=== PATIENT | male | born 1990 | race Caucasian/White ===

== ENCOUNTER 2020-01-27 09:34 | Outpatient (REF) | payer OTHER, SELFPAY ==
[2020-01-27 10:03] LABS: COVID-19 Test Negative (Negative)
== END 2020-01-27 09:35 | disposition home or self-care (01) ==
LOC: HO.EMPCOV 09:34
PROVIDERS: Visit Provider Internal Medicine
DX: Z20.828 Contact with and (suspected) exposure to other viral communicable diseases (principal)
CPT/HCPCS: 87635; C9803

== ENCOUNTER 2021-02-01 06:53 | Outpatient (REF) | payer OTHER, SELFPAY ==
--- NOTE | ~2021-02-01 | FL_ITS ---
EXAMINATION: FL BARIUM SWALLOW CLINICAL INFORMATION: Sensation of food getting stuck in throat. COMPARISON: None. TECHNIQUE: Barium swallow examination is performed using fluoroscopic evaluation in addition to multiple fluoroscopic spot views. The patient is imaged both upright and prone and using both thick and thin sulfate along with effervescent granules. Barium tablet was also administered. Fluoroscopy time: 0.7 minutes DAP: 5.3 Gycm2 Images: 34 FINDINGS: The swallowing mechanism is normal. No aspiration or penetration is seen. There is significant gastroesophageal reflux. The esophagus is otherwise normal appearing. No hernia, stricture or evidence of esophagitis is seen. The barium tablet passed freely into the stomach. FL/FL barium swallow IMPRESSION: Gastroesophageal reflux.
[2021-02-01 07:08] LABS: MANUAL DIFF FLAG NO
[2021-02-01 07:25] LABS: Basophils Absolute Auto 0.1 X10*3/uL (0.0-0.2); Basophils Percent Auto 0.9 % (0-2); Eosinophils Absolute Auto 0.2 X10*3/uL (0.0-0.4); Eosinophils Percent Auto 3.5 % (0-4); Hematocrit 43.7 % (42.0-52.0); Hemoglobin 14.9 g/dl (14.0-18.0); Imm Gran Abs Auto 0.02 X10*3/uL (0.00-0.03); Imm Gran Pct Auto 0.4 % (0.0-0.4); Lymphocytes Absolute Auto 1.7 X10*3/uL (1.2-4.9); Mean Corpuscular HGB Conc 34.1 g/dl (31.0-36.0); Mean Corpuscular Hemoglobin 31.4 pg (27.0-33.0); Mean Corpuscular Volume 92.2 fL (80.0-98.0); Mean Platelet Volume 9.3 fL (9.4-12.4); Monocytes Absolute Auto 0.6 X10*3/uL (0.1-1.2); Monocytes Percent Auto 10.3 % (2-11); Neutrophils Absolute Auto 2.9 x10*3/uL (2.0-8.3); Neutrophils Percent Auto 53.9 % (45-73); Platelet Count 296 X10*3/uL (160-400); Red Blood Count 4.74 X10*6/uL (4.60-5.80); White Blood Count 5.5 X10*3/uL (4.8-10.8)
[2021-02-01 08:08] LABS: Anion Gap 13 (12-20); Blood Urea Nitrogen 14 mg/dL (9-16); Calcium 9.5 mg/dL (8.4-10.2); Carbon Dioxide 26 mmol/L (22-29); Chloride 106 mmol/L (96-108); Cholesterol 190 mg/dL; Estimated Glomerular Filt Rate > 60; Glucose Fasting 106 mg/dL (60-99); HDL Cholesterol 47 mg/dL; LDL Cholesterol Calculated 117 mg/dl; Potassium 4.2 mmol/L (3.3-5.1); Sodium 141 mmol/L (135-145); Triglycerides 131 mg/dL
[2021-02-01 08:21] LABS: TSH reflex Free T4 2.42 uIU/mL (0.32-4.0)
[2021-02-01 08:48] LABS: HIV AB/AG Nonreactive (Nonreactive); HIV Num 1 0.05 S/CO (0.00-0.99)
[2021-02-01 08:50] LABS: ~HepC Num1 0.14 S/CO (0.00-0.79); ~Hepatitis C Antibody Nonreactive (Nonreactive)
[2021-02-02 03:52] LABS: Syphilis Screen Nonreactive (Nonreactive)
== END 2021-02-01 06:54 | disposition home or self-care (01) ==
LOC: HO.XRAY 06:53
PROVIDERS: PCP Nurse Practitioner Family; Visit Provider Nurse Practitioner Family
DX: Z00.00 Encounter for general adult medical examination without abnormal findings (principal); Z11.4 Encounter for screening for human immunodeficiency virus [HIV]; R19.8 Other specified symptoms and signs involving the digestive system and abdomen; I10 Essential (primary) hypertension; E78.00 Pure hypercholesterolemia, unspecified
CPT/HCPCS: 36415; 74220; 80048; 80061; 82947; 84443; 85025; 86780; 86803; 87389

== ENCOUNTER 2021-11-09 09:46 | Emergency (ER) | payer OTHER, SELFPAY ==
--- NOTE | ~2021-11-09 | CT_ITS ---
EXAMINATION: CT ABDOMEN AND PELVIS WITH CONTRAST CLINICAL INFORMATION: Right lower quadrant pain. COMPARISON: None. TECHNIQUE: Multidetector volumetric images were obtained from the superior aspect of the liver through the pubic symphysis following administration 85 mL of Omnipaque 350 intravenous contrast. Sagittal and coronal reformatted images were obtained on the technologist's workstation. Oral contrast: No This CT examination was performed using dose optimization techniques as appropriate, variously including the following: *Automated exposure control *Adjustment of mA and/or kV according to patient size (this includes techniques or standardized protocols for targeted exams where dose is matched to indication/reason for exam; i.e. extremities or head) *Use of iterative reconstruction technique DLP: 617 mGy-cm FINDINGS: LUNG BASES: Mild subsegmental atelectasis. No focal consolidation or pleural effusion. LIVER, GALLBLADDER, AND BILIARY TREE: The liver measures 21 cm craniocaudally but is otherwise normal in attenuation and shape. There are a couple hypodensities adjacent to the gallbladder in the right hepatic lobe, for instance images 29 and 35 (series 3), which are too small to characterize by CT, unsure if these are hepatic in origin or associated with volume averaging from the gallbladder wall. There are a few other very small hypodensities in the liver, for instance on sagittal image 85 and 102, series 8. No cholelithiasis. No evidence of gallbladder wall thickening or pericholecystic inflammatory changes to suspect acute cholecystitis. No biliary ductal dilatation. PANCREAS: Unremarkable. SPLEEN: Unremarkable. ADRENAL GLANDS: Unremarkable. KIDNEYS AND URETERS: There is a too small to characterize cortical hypodensity in the upper left kidney, which statistically favors to represent a simple cyst and for which no imaging follow-up is recommended. Symmetric nephrograms. No hydronephrosis. No significant perinephric fat stranding. BLADDER: Unremarkable. GASTROINTESTINAL TRACT: The appendix is not definitely identified, however there are no regional inflammatory changes to suspect acute appendicitis. Query wall thickening of the upper to mid rectum (3:78), suboptimally assessed due to underdistention. ABDOMINAL WALL: No significant hernia is appreciated. LYMPH NODES: There are a few prominent but subcentimeter in short axis right lower mesenteric lymph nodes, for instance measuring 0.7 cm in short axis on image 58, series 3. No lymphadenopathy by size criteria. VASCULAR: Normal caliber of the abdominal aorta. PELVIC VISCERA: Normal appearance of the prostate gland and seminal vesicles. OSSEOUS STRUCTURES: No acute or aggressive appearing osseous abnormalities. CT/CT abdomen pelvis w IV con IMPRESSION: Questionable mild wall thickening of the mid to upper rectum, equivocal finding in the setting of luminal underdistention. Correlate clinically for proctocolitis. There are a few too small to characterize liver hypodensities, many of which are likely related with volume averaging and tiny fat locules, and others which are likely containers sales representative of simple cysts and overall overwhelmingly likely to be benign in etiology. However, these are too small to characterize by CT and if clinically indicated, for definite characterization, correlation with an elective MR of the abdomen with and without intravenous contrast could be obtained. Mild hepatomegaly. A few prominent mesenteric lymph nodes, more so in the right lower quadrant are fairly indeterminate. This could potentially be reactive in the setting of gastroenteritis or associated with mesenteric adenitis.
[2021-11-09 09:53] VITALS: BP 148/91; PULSE 77; RESP 16; TEMP 36.4; O2SAT 100; BMI 26.3
--- NOTE | 2021-11-09 10:00 | ED.ABDPAIN ---
HPI - Abdominal Pain General Chief Complaint: Abdominal Pain Stated Complaint: appendix issue? Time Seen by Provider: 11/09/21 09:59 Source: patient Mode of arrival: ambulatory Limitations: no limitations History of Present Illness MD elicited complaint: abdominal pain Pertinent past history: none Onset (ago): day(s) (2) Pain Consistency: constant Location: RLQ and pelvis Severity: mild Quality: aching Radiation: none Migration to: no migration Exacerbating factors: movement Relieving factors: nothing Associated symptoms: other (felt dizzy at one point yesterday) Related Data Previous Rx's Medication Instructions Recorded diclofenac sodium 1 % topical gel 2 g topical QID #100 grams 01/24/21 (Voltaren Arthritis Pain) Allergies Allergy/AdvReac Type Severity Reaction Status Date / Time No Known Allergies Allergy Verified 01/24/21 16:21 [No Known Allergies*] Review of Systems Review of Systems Constitutional : No Weight loss, No Fever, No Chills ENT/Mouth : No sore throat, No Rhinorrhea Eyes: No Swelling, No Redness Cardiovascular : No Chest Pain, No SOB, NoEdema Respiratory : No Cough, No Sputum, No Wheezing Gastrointestinal : no Nausea, no Vomiting, no Diarrhea, positive abdominal Pain, No Hematochezia, No Melena Genitourinary : No Dysuria, No Urinary Frequency, No Hematuria, No Urgency Musculoskeletal : No joint pain, No Myalgias, No Joint Swelling Skin : No Skin Lesions, No rash Neuro : No Weakness, No Numbness, No Dizziness, No Headache Psych : No Anxiety/Panic, No Depression Heme/Lymph: No Bruising, No Lymphadenopathy Endocrine : No Polyuria, No Polydipsia All other systems reviewed and are negative. COUNTS INCLUDE 234 BEDS AT THE [facility] Past Medical History Attestation statement: The following information was validated with the patient. Medical History Right shoulder pain Social History Social History Housing: House Patient Tobacco Use Status: Former Tobacco user Tobacco use type: Cigarette e-Cigarette/Vaping Use: Never Used Second Hand Smoke Exposure: No Use of substances other than those prescribed or required for medical reasons: Yes Substance Use Type: Marijuana Substance Use Frequency: Occasionally Advance Directives: No service: No Current occupational status: employed Physical Exam ED Vital Signs: Vital Signs - 24 hr 11/09/21 09:53 11/09/21 10:35 Temperature 97.6 F Pulse Rate 77 66 Respiratory Rate 16 18 Blood Pressure 148/91 H 134/86 Pulse Oximetry 100 98 Oxygen Delivery Method Room Air Room Air BMI result Body Mass Index 26.3 Appearance: Alert. Oriented X3. No acute distress. Eyes: Pupils equal, round and reactive to light. ENT: Pharynx normal. Neck: Normal inspection. Neck supple. CVS: Normal heart rate and rhythm. Pulses normal. Respiratory: No respiratory distress. Breath sounds normal. Abdomen: Soft and mild ttp in RLQ no rebound or guarding, also ttp along R inguinal area no mass felt Skin: Skin warm and dry. Normal skin color. Normal skin turgor. Extremities: No lower extremity edema. No calf ttp Neuro: Oriented X 3. No motor deficit. No sensory deficit. Course Course Course Narrative: no fevers, no WBC count - no shift, possible mesenteric adenitis proctocolitis without rectal pain or diarrhea seems unlikely I discussed this with the patient and given lack of symptoms we will hold off antibiotics he will call tomorrow if he has any issues or develops diarrhea or pain MDM - Abdominal Pain MDM Narrative Medical decision making narrative: 31 yo male with no sig PMH here with 2 days of RLQ pain but also possible pain along inguinal area - at this time will obtain basic labs, CT scan to evaluate for appendicitis. Dispo per results and findings. Lab Data Result diagrams: 11/09/21 10:01 11/09/21 10:01 Labs: Lab Results 11/09/21 11/09/21 11/09/21 Range/Units 10:01 10:01 10:42 WBC 7.6 (4.8-10.8) X10*3/uL RBC 4.91 (4.60-5.80) X10*6/uL Hgb 15.7 (14.0-18.0) g/dl Hct 44.6 (42.0-52.0) % MCV 90.8 (80.0-98.0) fL MCH 32.0 (27.0-33.0) pg MCHC 35.2 (31.0-36.0) g/dl RDW 12.0 (11.0-16.0) % Plt Count 271 (160-400) X10*3/uL MPV 9.2 L (9.4-12.4) fL Immature Gran % (Auto) 0.4 (0.0-0.4) % Neut % (Auto) 67.0 (45-73) % Lymph % (Auto) 24.0 (20-40) % Pinal % (Auto) 7.0 (2-11) % Eos % (Auto) 0.9 (0-4) % Baso % (Auto) 0.7 (0-2) % Lymph # (Auto) 1.8 (1.2-4.9) X10*3/uL Pinal # (Auto) 0.5 (0.1-1.2) X10*3/uL Eos # (Auto) 0.1 (0.0-0.4) X10*3/uL Baso # (Auto) 0.1 (0.0-0.2) X10*3/uL Abs Immat Gran (auto) 0.03 (0.00-0.03) X10*3/uL Absolute Neuts (auto) 5.1 (2.0-8.3) x10*3/uL Absolute Nucleated RBC 0.000 (0.0-0.012) X10*3/uL Nucleated RBC % (auto) 0.0 (0.0-0.2) /100WBC Sodium 141 (135-145) mmol/L Potassium 4.5 (3.3-5.1) mmol/L Chloride 103 (96-108) mmol/L Carbon Dioxide 27 (22-29) mmol/L Anion Gap 16 (12-20) BUN 17 H (9-16) mg/dL Creatinine 0.89 (0.5-1.4) mg/dL Estim Creat Clear Calc 141.1 Estimated GFR > 60 Random Glucose 103 (60-115) mg/dL Lactic Acid 0.8 (0.5-2.0) mmol/L Calcium 10.0 (8.4-10.2) mg/dL Total Bilirubin 1.0 (0.0-1.0) mg/dL Direct Bilirubin 0.3 (0.0-0.5) mg/dL AST 23 (5-37) U/L ALT 43 H (0-40) U/L Alkaline Phosphatase 88 (39-117) U/L Total Protein 8.0 (6.5-8.0) g/dL Albumin 5.0 (3.5-5.0) g/dL Lipase 22 (8-78) U/L Discharge Plan Discharge Clinical Impression: Acute mesenteric adenitis Patient Disposition: Home, Self-Care Instructions: Mesenteric Adenitis (ED) Additional Instructions: return to ED for any worsening symptoms or concerns motrin and tylenol for pain - adenitis is usually self limiting you will need outpatient MRI of your liver to characterize cysts Questionable mild wall thickening of the mid to upper rectum, equivocal finding in the setting of luminal underdistention. Correlate clinically for proctocolitis. ? There are a few too small to characterize liver hypodensities, many of which are likely related with volume averaging and tiny fat locules, and others which are likely patient service representative of simple cysts and overall overwhelmingly likely to be benign in etiology. However, these are too small to characterize by CT and if clinically indicated, for definite characterization, correlation with an elective MR of the abdomen with and without intravenous contrast could be obtained. ? Mild hepatomegaly. ? A few prominent mesenteric lymph nodes, more so in the right lower quadrant are fairly indeterminate. This could potentially be reactive in the setting of gastroenteritis or associated with mesenteric adenitis. Prescriptions: No Action diclofenac sodium [Voltaren Arthritis Pain] 1 % gel 2 g topical QID Qty: 100 0RF Rx Instructions: apply to single elbow, wrist or hand; for hand includes palm/fingers/back of hand Referrals: Taylor Simeon FNP-C [Primary Care Provider] - 2 days (follow up MRI) Stand Alone Forms: Work/School Release
[2021-11-09 10:05] LABS: MANUAL DIFF FLAG NO
[2021-11-09 10:13] LABS: Basophils Absolute Auto 0.1 X10*3/uL (0.0-0.2); Basophils Percent Auto 0.7 % (0-2); Eosinophils Absolute Auto 0.1 X10*3/uL (0.0-0.4); Eosinophils Percent Auto 0.9 % (0-4); Hematocrit 44.6 % (42.0-52.0); Hemoglobin 15.7 g/dl (14.0-18.0); Imm Gran Abs Auto 0.03 X10*3/uL (0.00-0.03); Imm Gran Pct Auto 0.4 % (0.0-0.4); Lymphocytes Absolute Auto 1.8 X10*3/uL (1.2-4.9); Mean Corpuscular HGB Conc 35.2 g/dl (31.0-36.0); Mean Corpuscular Volume 90.8 fL (80.0-98.0); Mean Platelet Volume 9.2 fL (9.4-12.4); Monocytes Absolute Auto 0.5 X10*3/uL (0.1-1.2); Neutrophils Absolute Auto 5.1 x10*3/uL (2.0-8.3); Platelet Count 271 X10*3/uL (160-400); Red Blood Count 4.91 X10*6/uL (4.60-5.80); White Blood Count 7.6 X10*3/uL (4.8-10.8)
[2021-11-09 10:28] LABS: Alanine Aminotransferase 43 U/L (0-40); Alkaline Phosphatase 88 U/L (39-117); Anion Gap 16 (12-20); Aspartate Amino Transferase 23 U/L (5-37); Bilirubin Direct 0.3 mg/dL (0.0-0.5); Blood Urea Nitrogen 17 mg/dL (9-16); Carbon Dioxide 27 mmol/L (22-29); Chloride 103 mmol/L (96-108); Creatinine Clr Calc Pharmacy 141.1; Estimated Glomerular Filt Rate > 60; Glucose Random 103 mg/dL (60-115); Lipase 22 U/L (8-78); Potassium 4.5 mmol/L (3.3-5.1); Sodium 141 mmol/L (135-145)
[2021-11-09 10:35] VITALS: BP 134/86; PULSE 66; RESP 18; O2SAT 98
[2021-11-09] MEDS: Ketorolac Tromethamine 30 MG/ML VIAL IVPUSH (10:49)
[2021-11-09] MEDS: Lactated Ringers 1,000 ML 999 ML IV (10:49)
[2021-11-09 10:58] LABS: Lactic Acid 0.8 mmol/L (0.5-2.0)
[2021-11-09] MEDS: iohexoL 350 MG/ML 100 ML INFUS..BTL IV (11:36)
== END 2021-11-09 12:39 | disposition home or self-care (01) ==
PROVIDERS: Emergency Provider Emergency Medicine; PCP Nurse Practitioner Family
DX: I88.0 Nonspecific mesenteric lymphadenitis (principal); R10.31 Right lower quadrant pain; R42 Dizziness and giddiness; Z79.899 Other long term (current) drug therapy
CPT/HCPCS: 36415; 74177; 80048; 80076; 83605; 83690; 85025; 96361; 96374; 99284; 99285; J1885; Q9967

== ENCOUNTER 2023-01-24 16:21 | Outpatient (AMB) | payer OTHER, SELFPAY ==
[2023-01-24 16:25] VITALS: BP 126/84; PULSE 74; O2SAT 99; BMI 26.8
--- NOTE | 2023-01-24 16:25 | MHC.PC.OV ---
Vital Signs 01/24/23 16:25 Height 6 ft 2 in Weight 209 lb 0.8 oz BMI 26.8 BP 126/84 Blood Pressure Location Lt brachial Position Sitting Pulse 74 Pulse Source Pulse Oximeter Temp Source Skin Pulse Oximetry (%) 99 Oxygen Delivery Method Room Air Intake Visit Reasons: Transfer of Care from [facility]/ Annual Exam Manager Membership Required: No Allergies No Known Allergies [No Known Allergies*] Allergy (Verified 01/24/23 16:48) Medication List - Last Reconciled 01/24/23 by TEJAS Diallo No Known Home Meds Tobacco use date assessed: 01/24/23 Dental Screening Dental Screen Date: 01/24/23 Did you have a dental visit in the last 12 months?: Yes Did you have a dental problem in the last 6 months where you did not have access to dental care?: No Was dental information given to patient?: Patient has dentist HPI Transfer of Care from [facility]/ Annual Exam HPI Details Patient is a 32-year-old male who presents today for physical exam. No past significant medical history. Tdap in 2018. Dentist up-to-date, no problems with eyes, does not see eye doctor. Reports right hand wart for the past 9 months, reports mole on his right arm, would like to have skin cancer screening-will refer to Dermatology. No shortness of breath or chest pain. Would like to have STI screening, denies STI exposure. [facility] Medical History (Updated 01/24/23 @ 17:05 by TEJAS Diallo) Globus sensation Right shoulder pain Social History Housing: House Patient Tobacco Use Status: Former Tobacco user Tobacco use type: Cigarette e-Cigarette/Vaping Use: Never Used Second Hand Smoke Exposure: No Substance Use Type: Marijuana service: No Current occupational status: employed Cognitive needs: No Hearing needs: No Vision needs: No Questionnaire PHQ-9 Over the last 2 weeks, how often have you been bothered by any of the following problems? 1. Little interest or pleasure in doing things: not at all 2. Feeling down, depressed, or hopeless: not at all 3. Trouble falling or staying asleep, or sleeping too much: not at all 4. Feeling tired or having little energy: not at all 5. Poor appetite or overeating: not at all 6. Feeling bad about yourself - or that you are a failure or have let yourself or your family down: not at all 7. Trouble concentrating on things, such as reading the newspaper or watching television: not at all 8. Moving or speaking so slowly that other people could have noticed. Or the opposite - being so fidgety or restless that you have been moving around a lot more than usual: not at all 9. Thoughts that you would be better off or of hurting yourself in some way: not at all Total score: 0 Depression Screening Interpretation: Negative Depression Screening Done: Yes 31831 - PHQ-9 Billing: Yes Source: Developed by Drs. Tulio Vallejo, Alba Roa, Vasu Hill and colleagues, with an educational azael from [employer]. Thrive Questionnaire Date Thrive assessed: 01/24/23 I am a: Patient What is your living situation today?: I have a steady place to live Within the past 12 months, did the food you bought not last and you didn't have the money to get more?: Never true Within the past 12 months, did you worry whether your food would run out before you got money to buy more?: Never true Do you have trouble paying for medicines?: No Do you have trouble getting transportation to medical appointments?: No Do you have trouble paying your heating and electricity bill?: No Do you have trouble taking care of your child, family member or friend?: No Do you have trouble with day-to-day activities such as bathing, preparing meals, shopping, managing finances, etc.?: No Are you currently unemployed and looking for a job?: No Are you interested in more education?: No Currently or been in a relationship where the following occur: no concerns reported AUDIT C Alcohol Use Questionnaire (AUDIT-C) 1. How often do you have a drink containing alcohol?: Monthly or less 2. How many drinks containing alcohol do you have on a typical day when you are drinking?: 1 or 2 3. How often do you have six or more drinks on one occasion?: Never Total Score: 1 Score Reviewed/Action Taken: No ANIA-7 AMB Questionnaire ANIA-7 Date ANIA - 7 assessed: 01/24/23 Feeling nervous, anxious, or on edge: 0 = Not at all Not being able to stop or control worryin = Not at all Worrying too much about different things: 0 = Not at all Trouble relaxin = Not at all Being so restless that it is hard to sit still: 0 = Not at all Becoming easily annoyed or irritable: 0 = Not at all Feeling afraid as if something awful might happen: 0 = Not at all Total ANIA-7 score (0-4 normal; 5-9 mild; 10-14 moderate; 15-21 severe): 0 Source: Developed by Drs. Tulio Vallejo, Alba Roa, Vasu Hill and colleagues, with an educational azael from [employer]. ANIA-7 Assessment Billing ANIA-7 Assessment Tool: ANIA-7 Assessment 82822 Review of Systems Const Denies body aches, Denies chills, Denies fever(s) and Denies headache(s) Eyes Denies change in vision ENT Denies dizziness, Denies otalgia, Denies headache(s), Denies nasal discharge, Denies sinus pain and Denies sore throat Card Denies chest pain, Denies edema, Denies lightheadedness and Denies dyspnea Resp Denies cough, Denies dyspnea and Denies wheezing GI Denies abdominal pain, Denies constipation, Denies diarrhea, Denies nausea and Denies vomiting Denies dysuria Musc Denies myalgias Skin/Breast Reports as per HPI Neuro Denies dizziness and Denies headache(s) Aller/Immun Denies wheezing Physical exam (Primary Care) Vital Signs: Last Vital Signs Pulse 74 01/24/23 16:25 BP 126/84 01/24/23 16:25 Pulse Ox 99 01/24/23 16:25 Oxygen Delivery Method Room Air 01/24/23 16:25 BMI result Body Mass Index 26.8 Tobacco/Smoking Status: Tobacco use Status Tobacco use date assessed 01/24/23 01/24/23 16:28 Patient Tobacco Use Status Former Tobacco user 01/24/23 16:25 Tobacco use type Cigarette 01/24/23 16:25 e-Cigarette/Vaping Use Never Used 01/24/23 16:25 PHQ-9: PHQ-9 Score PHQ-9: Total score 0 01/24/23 16:28 Depression Screening Interpretation: Negative Thrive Assessment: Date of Thrive Assessment Date Thrive assessed 01/24/23 01/24/23 16:28 Currently or been in a relationship where the following occur: no concerns reported Const General: cooperative and no acute distress Orientation/consciousness: patient oriented x3 HENMT Head: Yes normocephalic and Yes atraumatic Ears: TM's normal bilaterally Face and sinus: Yes sinuses nontender Mouth: oropharynx normal and moist mucous membranes Throat: Yes posterior oropharynx normal Eyes General: appearance normal, both eyes and all related structures Pupils: Equal, round and reactive pupils present EOM: EOMs intact bilaterally Neck Neck: Yes normal visual inspection, Yes full ROM and Yes no lymphadenopathy Thyroid: Thyroid normal Resp Effort & Inspection: normal respiratory effort and able to speak in complete sentences Auscultation: clear to auscultation bilaterally, no crackles, no rales, no rhonchi and no wheezes Cardio Rate: regular rate Rhythm: regular rhythm Heart sounds: S1 normal heart sound present, S2 normal heart sound present and no murmurs GI Palpation (GI): Soft to palpation, not firm, nontender, no guarding, not rigid and no hepatosplenomegaly Auscultation: normal bowel sounds General: No CVA tenderness Back/Spine/Pelvis Back: No CVA tenderness Skin Other: Right dorsal hand wart Right arm skin mole about 4mm in diameter - light brown Neuro General: patient oriented x3 Cranial nerves: Yes Equal, round and reactive pupils present Gait exam (Neuro): Normal gait present Extrem General: Yes full ROM and No edema Assessment and Plan Assessment & Plan (1) Wart of hand: Code(s): B07.9 - Viral wart, unspecified Plan: Dermatology referral (2) Routine screening for STI (sexually transmitted infection): Code(s): Z11.3 - Encounter for screening for infections with a predominantly sexual mode of transmission Plan: Blood work ordered (3) Skin cancer screening: Code(s): Z12.83 - Encounter for screening for malignant neoplasm of skin Plan: Dermatology referral (4) Change in mole: Code(s): D22.9 - Melanocytic nevi, unspecified Plan: Dermatology referral (5) Physical exam: Code(s): Z00.00 - Encounter for general adult medical examination without abnormal findings Plan: Repeat in 1 year Orders: Orders Vitamin D 25-OH Total Today Z00.00 - Encounter for general adult medical examination without abnormal findings TSH reflex Free T4 Today Z00.00 - Encounter for general adult medical examination without abnormal findings Lipid Panel Today Z00.00 - Encounter for general adult medical examination without abnormal findings Comprehensive Otis. Panel Fast Today Z00.00 - Encounter for general adult medical examination without abnormal findings Complete Blood Count Auto Diff Today Z00.00 - Encounter for general adult medical examination without abnormal findings Syphilis Screen Today Z11.3 - Encounter for screening for infections with a predominantly sexual mode of transmission CT NG by PCR Today Z11.3 - Encounter for screening for infections with a predominantly sexual mode of transmission Hepatitis B,C Profile Today Z11.3 - Encounter for screening for infections with a predominantly sexual mode of transmission HIV Ab/Ag Today Z11.3 - Encounter for screening for infections with a predominantly sexual mode of transmission Referrals Dermatology Referral B07.9 - Viral wart, unspecified, D22.9 - Melanocytic nevi, unspecified, Z12.83 - Encounter for screening for malignant neoplasm of skin Coding Level of Care Code Est Pt Prev Care 18-39y([id number]) Diagnoses Wart of hand B07.9 Routine screening for STI (sexually transmitted infection) Z11.3 Skin cancer screening Z12.83 Change in mole D22.9 Physical exam Z00.00 Additional Codes ANIA-7 Assessment Billing - ANIA-7 Assessment Tool: ANIA-7 Assessment [id number] ([id number])
== END 2023-01-24 17:03 | disposition home or self-care (01) ==
PROVIDERS: PCP Nurse Practitioner Family; Visit Provider Nurse Practitioner Family
DX: Z00.00 Encounter for general adult medical examination without abnormal findings (principal); B07.9 Viral wart, unspecified; Z11.3 Encounter for screening for infections with a predominantly sexual mode of transmission; Z12.83 Encounter for screening for malignant neoplasm of skin; D22.9 Melanocytic nevi, unspecified
CPT/HCPCS: 99395

== ENCOUNTER 2023-01-27 08:09 | Outpatient (REF) | payer OTHER, SELFPAY ==
[2023-01-27 08:40] LABS: MANUAL DIFF FLAG NO
[2023-01-27 09:12] LABS: Basophils Absolute Auto 0.1 X10*3/uL (0.0-0.2); Eosinophils Absolute Auto 0.1 X10*3/uL (0.0-0.4); Eosinophils Percent Auto 2.3 % (0-4); Hematocrit 43.7 % (42.0-52.0); Hemoglobin 15.1 g/dl (14.0-18.0); Imm Gran Abs Auto 0.01 X10*3/uL (0.00-0.03); Imm Gran Pct Auto 0.2 % (0.0-0.4); Lymphocytes Absolute Auto 0.9 X10*3/uL (1.2-4.9); Lymphocytes Percent Auto 19.1 % (20-40); Mean Corpuscular HGB Conc 34.6 g/dl (31.0-36.0); Mean Corpuscular Hemoglobin 31.7 pg (27.0-33.0); Mean Corpuscular Volume 91.8 fL (80.0-98.0); Mean Platelet Volume 9.4 fL (9.4-12.4); Monocytes Absolute Auto 0.5 X10*3/uL (0.1-1.2); Monocytes Percent Auto 9.4 % (2-11); Neutrophils Absolute Auto 3.3 x10*3/uL (2.0-8.3); Platelet Count 281 X10*3/uL (160-400); Red Blood Count 4.76 X10*6/uL (4.60-5.80); Red Cell Distribution Width 12.6 % (11.0-16.0); White Blood Count 4.9 X10*3/uL (4.8-10.8)
[2023-01-27 09:45] LABS: Alanine Aminotransferase 35 U/L (0-40); Aspartate Amino Transferase 22 U/L (5-37); Blood Urea Nitrogen 12 mg/dL (9-16); Estimated Glomerular Filt Rate > 60
== END 2023-01-27 08:10 | disposition home or self-care (01) ==
LOC: HO.LAB 08:09
PROVIDERS: Physician Assistant Medical; Visit Provider Nurse Practitioner Family
DX: Z77.098 Contact with and (suspected) exposure to other hazardous, chiefly nonmedicinal, chemicals (principal)
CPT/HCPCS: 36415; 82565; 84450; 84460; 84520; 85025

== ENCOUNTER → 2025-01-16 11:42 | Outpatient (BNV) | payer OTHER, SELFPAY | PROVIDERS: Visit Provider Radiology Diagnostic Ultrasound | DX: S83.241A Other tear of medial meniscus, current injury, right knee, initial encounter (principal); M25.461 Effusion, right knee | CPT/HCPCS: 73721 ==

== ENCOUNTER 2025-01-16 11:43 | Outpatient (REF) | payer OTHER, SELFPAY ==
--- NOTE | ~2025-01-16 | MR_ITS ---
EXAMINATION: MR KNEE WITHOUT CONTRAST, RIGHT CLINICAL INFORMATION: Meniscal injury COMPARISON: None available. TECHNIQUE: MRI of the knee without contrast was performed using routine sequences on a high-field scanner. FINDINGS: MENISCI: Medial Meniscus: Complex tear, including horizontal and radial tear involving the mid/medial aspect of the posterior horn and the mid/posterior body. Small parameniscal cyst. Lateral Meniscus: Intact LIGAMENTS: Cruciate: Intact Collateral: Intact EXTENSOR MECHANISM: Intact ARTICULAR CARTILAGE/BONE: Patellofemoral Compartment: Mild lateral patellar subluxation. Focal superficial fissure in the central patella. Medial Compartment: No significant chondral loss Lateral Compartment: No significant chondral loss. No fracture No aggressive marrow replacing lesion. JOINT FLUID AND BURSAE: Moderate joint effusion. No significant Parker's cyst. Popliteus muscle and tendon are intact. MR/MR knee RT wo con IMPRESSION: * Tear of the medial meniscal posterior horn and body. * Focal superficial fissure in the central patella. * Moderate effusion. Electronically signed by: Kobe Sanchez MD 01/16/2025 04:36 PM EST
== END 2025-01-16 11:44 | disposition home or self-care (01) ==
LOC: HO.MRI 11:43
PROVIDERS: Visit Provider Orthopaedic Surgery
DX: S83.241A Other tear of medial meniscus, current injury, right knee, initial encounter (principal)
CPT/HCPCS: 73721